=== PATIENT | female | born 2005 | race African-American/Black ===

== ENCOUNTER → 2024-01-17 12:13 | Outpatient (CLI) | payer OTHER, SELFPAY ==
[2024-01-17 14:23] LABS: Hematocrit 33.9 % (36-46)
[2024-01-17 14:35] LABS: GTT (PREG) 1 Hour PP 50gm Dose 59 mg/dL (76-139); Glucose 59 mg/dL (70-100); Hemoglobin A1C% w Est Avg Glu 4.6 % (4.0-6.0)
[2024-01-18 13:51] LABS: Varicella IgG Antibody 1282 index (Immune >165)
== END ==
PROVIDERS: Referring Provider Specialist; Visit Provider Specialist
DX: O09.33 Supervision of pregnancy with insufficient antenatal care, third trimester (principal); Z3A.35 35 weeks gestation of pregnancy
CPT/HCPCS: 36415; 82947; 82950; 83036; 85014; 85018; 86787